=== PATIENT | female | born 1970 | race Caucasian/White ===

== ENCOUNTER 2022-01-15 08:24 | Observation (INO) ==
--- NOTE | 2022-01-13 09:06 | Anesthesiology Consultation ---
Date of Service January 13, 2022 Assessment & Plan (1) Encounter for pre-operative examination: - COVID screening: Per assessment on 01/13: No known COVID-19 positive contacts or current COVID-19 related symptoms. Travel screen negative. Patient vaccinated. Preop Covid test (done 01/12; [facility]) was negative. - S/P colonoscopy (10/08/21): [facility] at [facility]. No issues per post-op anesthesia progress note. - Check BSG, test AM DOS - Preop testing: No recent EKG received. Will check EKG AM DOS. Chart Review Chart Review: Acceptable Risk for Surgery (pending EKG AM DOS) and Patient NOT seen in Pre Admission Testing History Surgery Operation Date: 01/15/22 10:00 Proposed Procedures p Total Laparoscopic Hysterectomy, Cystoscopy, Bilateral Salpingectomy, Possible Laparotomy - Bebeto Nichole MD Height/Weight Height: 5 ft 9 in Weight: 136.078 kg Allergies Allergy/AdvReac Type Severity Reaction Status Date / Time Iodine and Iodide Containing Allergy Intermediate Itching, Verified 01/15/22 08:57 Produc hives latex Allergy Intermediate Itching Verified 01/15/22 08:57 Medications Home Medications Medication Instructions Recorded Confirmed Last Taken Vitamin C 2 tab PO QPM 06/19/19 01/15/22 01/13/22 cyclosporine 0.05 % eye drops in a 1 drp OPHTHALMIC (EYE) Q12H 06/19/19 01/15/22 01/13/22 dropperette (Restasis) metformin 500 mg tablet,extended 500 mg PO QPM 06/19/19 01/15/22 01/13/22 release 24 hr biotin 1 mg tablet 1 mg PO QPM 10/02/21 01/15/22 01/13/22 cholecalciferol (vitamin D3) 25 25 mcg PO QPM 10/02/21 01/15/22 01/13/22 mcg (1,000 unit) chewable tablet (Vitamin D3) cyanocobalamin (vitamin B-12) 1,000 mcg PO QPM 10/02/21 01/15/22 01/13/22 1,000 mcg tablet (Vitamin B-12) ferrous sulfate 325 mg (65 mg 325 mg PO Q OTHER DAY 10/02/21 01/15/22 01/13/22 iron) tablet (Iron (ferrous sulfate)) calcium polycarbophil 625 mg 625 mg PO QPM 01/13/22 01/15/22 01/13/22 tablet (FiberCon) Active Medications Generic Name Dose Route Start Last Admin Trade Name Lucina PRN Reason Stop Dose Admin Lactated Ringer's 1,000 mls @ 15 mls/hr 01/15/22 06:00 01/15/22 09:26 Lr IV 01/16/22 05:59 15 mls/hr .Q24H LALA Administration Lactated Ringer's 1,000 mls @ 125 mls/hr 01/15/22 06:00 01/15/22 09:26 Lr IV 01/15/22 13:59 Not Given .Q8H LALA Past Medical History Medical History Anxiety Diabetes mellitus, type 2 NIDDM History of COVID-19 Dx 01/2021 > resolved Morbid obesity with BMI of 45.0-49.9, adult Sleep apnea CPAP Temporomandibular joint disorder + clicking, hx locking (3+ months ago), + jaw pain Past Family History Family History Brother Family history of diabetes mellitus Mother Family history of diabetes mellitus Other No family history of adverse response to anesthesia Past Surgical History Surgical History History of anesthesia reaction "Slow to wake" > was previously admitted overnight d/t post-op grogginess History of bilateral tubal ligation History of colonoscopy Hx of laparoscopic gastric banding + subsequent removal Social History Smoking Status: Former smoker tobacco type: cigarettes Smoking End Date: 15 YEARS AGO Hx Alcohol Use: Yes Alcohol type: beer, wine and hard liquor alcohol intake frequency: a few times a month substance use type: does not use Physical Exam Vital Signs Last Vital Signs Temp 36.8 C 01/15/22 09:02 Pulse 84 01/15/22 09:02 Resp 20 01/15/22 09:02 BP 147/84 H 01/15/22 09:02 Pulse Ox 96 01/15/22 09:02 Testing Laboratory Results 01/15/22 09:09 01/15/22 09:01 POC Glucose 121 H 01/15/22 09:01 POC Ur Test NEG Electrocardiogram 01/04/22 WBC 12.5 H/H 12.4/37.5 PLATELETS 256 SODIUM 139 POTASSIUM 4.5 CHLORIDE 105 CO2 26 BUN 13 CREATININE 0.78 GLUCOSE 97 Chest X-Ray Date: 07/13/21 Findings: + NAD Stress Test Date: 06/04/16 Type: exercise Stress echo is negative for inducible ischemia. Markedly reduced exercise tolerance. EF 55 to 60%. Grade 2 diastolic dysfunction. Mild AV sclerosis without stenosis. Mild AR. 1 mL 1% MPHR. 6 METS.
[~2022-01-15 08:24] MED LIST: LACTATED RINGER'S 1,000 ML IV SCH; LR 15ML/HR IV SCH
[2022-01-15 09:43] LABS: Basophils # (auto) 0.04 K/uL (0-0.2); Basophils % (auto) 0.4 %; Eosinophils # (auto) 0.16 K/uL (0-0.5); Eosinophils % (auto) 1.7 %; Hematocrit (blood only) 39.8 % (37-47); Hemoglobin 12.7 g/dL (12.0-16.0); Immature Granulocytes # (auto) 0.01 K/uL (0.00-0.02); Immature Granulocytes % (auto) 0.1 %; Lymphocytes % (auto) 18.2 %; Mean Corpuscular Hemoglobin 29.3 pg (25-34); Mean Corpuscular Volume 91.7 fL (80-100); Mean Platelet Volume 11.7 fL (7.4-10.4); Monocytes # (auto) 0.71 K/uL (0.11-0.59); Monocytes % (auto) 7.6 %; Neutrophils # (auto) 6.74 K/uL (1.4-6.5); Platelet Count 225 K/uL (130-400); RDW Standard Deviation 50.5 fL (36.4-46.3); Red Blood Count 4.34 M/uL (4.2-5.4); White Blood Count 9.36 K/uL (4.8-10.8)
[2022-01-15] MEDS ORDERED: MIDAZOLAM HCL 1 MG/ML 2ML VIAL ONE (09:43)
[2022-01-15] MEDS ORDERED: fentaNYL citrate 100 MCG/2 ML VIAL ONE ×5 (09:44→13:18)
--- NOTE | 2022-01-15 09:48 | History & Physical Bridge Note ---
Date of Service January 15, 2022 History & Physical Bridge Note I have examined the patient, reviewed the History & Physical and in the interval since the performance of the History & Physical I have noted the following changes of clinical significance: no changes noted
[2022-01-15 09:51] LABS: Mean Corpuscular Hgb Conc 31.9 g/dL (32-36)
[2022-01-15] MEDS ORDERED: ONDANSETRON INJ 2 MG/ML 2 ML VIAL IV PRN ×2 (09:56→16:06)
[2022-01-15] MEDS ORDERED: PROMETHAZINE HCL 12.5 MG in SODIUM CHLORIDE 0.9% 50 ML IV PRN ×2 (09:56→16:06)
[2022-01-15] MEDS ORDERED: HYDROmorphone INJ 1 MG/ML SYRINGE IV PRN (09:56)
[2022-01-15] MEDS ORDERED: ATROPINE SULFATE 0.1 MG/ML 10ML SYR IV PRN (09:56)
[2022-01-15] MEDS ORDERED: BUPIVACAINE 0.5 % 5 MG/1 ML MPF 30ML VIAL ONE (09:57)
[2022-01-15] MEDS ORDERED: METHYLENE BLUE 0.5% 10 ML VIAL ONE (09:58)
[2022-01-15] MEDS ORDERED: DEXAMETHASONE SOD INJ 4 MG/ML VIAL ONE ×2 (10:36→15:13)
[2022-01-15] MEDS ORDERED: ROCURONIUM BROMIDE 10 MG/ML 5 ML VIAL IV ONE ×6 (10:36→15:13)
[2022-01-15] MEDS ORDERED: METOCLOPRAMIDE HCL INJ 5 MG/ML 2 ML VIAL ONE (10:36)
[2022-01-15] MEDS ORDERED: LIDOCAINE 2% 2 ML VIAL/AMP(20MG/ML) INFIL ONE ×2 (10:36→15:13)
[2022-01-15] MEDS ORDERED: PROPOFOL IV EMULSION 10 MG/ML 20 ML VIAL IV ONE (10:36)
[2022-01-15] MEDS ORDERED: FLOSEAL HEMOSTATIC MATRIX 10ML TOP ONE (14:05)
[2022-01-15] MEDS ORDERED: HYDROmorphone INJ 2 MG/ML SYR/VIAL ONE (14:45)
[2022-01-15] MEDS ORDERED: NEOSTIGMINE METHYLSULFATE 1 MG/ML 10ML VIAL ONE (15:13)
[2022-01-15] MEDS ORDERED: GLYCOPYRROLATE 0.2 MG/ML VIAL ONE (15:13)
[2022-01-15] MEDS ORDERED: bisacodyL 10 MG SUPP PR PRN (16:06)
[2022-01-15] MEDS ORDERED: oxyCODONE/ACETAMINOPHEN 5mg/325mg TAB PO PRN (16:06)
[2022-01-15] MEDS ORDERED: ACETAMINOPHEN 325 MG TAB PO PRN (16:06)
[2022-01-15] MEDS ORDERED: MAGNESIUM HYDROXIDE SUSP 30 ML UDC PO PRN (16:06)
[2022-01-15] MEDS ORDERED: SIMETHICONE 80 MG CHEW PO PRN (16:06)
--- NOTE | 2022-01-15 16:06 | Post Operative Brief Note ---
Immediate Post Op Note v1 Date of Surgery January 15, 2022 Pre & Post Diagnosis Operation Date: 01/15/22 10:00 Pre-Op Diagnosis: Fibroid Uterus, Menorrhagia Post-Op Diagnosis: Fibroid Uterus, Menorrhagia I identified the patient and participated in the time-out.: Yes Procedure Operation Date: 01/15/22 10:00 Actual Procedures p Total Laparoscopic Hysterectomy, Bilateral Salpingectomy(Not Applicable) - Bebeto Nichole MD s Cystoscopy(Not Applicable) - Bebeto Nichole MD Surgeon Bebeto Nichole MD Milker Machine alex rai Estimated Blood Loss 10 Findings Consistent with Post-Op Diagnosis Drains Sal Catheter
--- NOTE | 2022-01-15 17:18 | Anesthesiology Progress Note ---
Date of Service January 15, 2022 Anesthesia Post Procedure Vital Signs Vital Signs: Temp Pulse Pulse Resp BP Pulse Ox 01/15/22 17:00 80 13 108/71 95 01/15/22 16:45 68 18 112/64 94 01/15/22 16:30 65 14 109/69 94 01/15/22 16:15 36.4 C L 72 16 132/76 95 01/15/22 16:05 69 13 110/72 97 01/15/22 15:55 69 14 127/64 99 01/15/22 15:45 71 18 125/71 97 01/15/22 15:38 36.9 C 78 14 133/74 98 01/15/22 09:02 36.8 C 84 20 147/84 H 96 Transfer of Care Handoff Completed per policy Notes Mental Status: alert / awake / arousable and participated in evaluation Patient Amnestic to Procedure: Yes Nausea / Vomiting: adequately controlled Pain: adequately controlled Airway Patency, RR, SpO2: stable & adequate BP & HR: stable & adequate Hydration State: stable & adequate Anesthetic Complications: no major complications apparent and Pt Satisfied with anesthetic care
--- NOTE | 2022-01-15 17:40 | Operative Report (OR) ---
DATE OF PROCEDURE: 01/15/2022 INDICATION FOR SURGERY: This is a 51-year-old with menorrhagia and 16 week size fibroid uterus. POSTOPERATIVE DIAGNOSES: Menorrhagia and 16 week size fibroid uterus. SURGEON: Bebeto Nichole MD. TAX LAWYER: Marjorie Irene PA-C. PROCEDURES: 1. Total laparoscopic hysterectomy with bilateral salpingectomy. 2. Cystoscopy.. ATTESTATION FOR TAX LAWYER: Tobacco Roller was necessary to help with retraction and manipulation to help facilitate safe procedure. DRAINS: None. ESTIMATED BLOOD LOSS: 10 mL. INTRAVENOUS FLUIDS: 1500 mL. URINE OUTPUT: 400 mL of clear urine at the end of the procedure. SPECIMEN: Uterus with cervix, left and right fallopian tubes. INTRAOPERATIVE COMPLICATIONS: None. PATIENT CONDITION: Stable. DISPOSITION: Postoperative anesthesia care unit. ATTESTATION: I performed the entire procedure. FINDINGS: Normal female escutcheon, vagina and vulva appropriate for 51-year-old, some mild atrophy. Laparoscopic findings; however, showed a large uterus about 16 week size. Left and right ovary and fallopian tube were identified. There were adhesions of the left colon attached to the left lower p glen. DESCRIPTION OF PROCEDURE: The patient was taken to the operating room where she was prepped and drap ed in a normal sterile fashion in dorsal lithotomy position. Timeout was called. Vagina was examine d and dictation is as dictated above. A Sal catheter was placed into the bladder without difficult y. The medium size VCare uterine manipulator was placed into the uterus and attached with a sutur es to help manipulate the uterus during laparoscopy. The uterus sounded to 6-16 cm. Attention was p aid to the abdominal part of the procedure where a supraumbilical incision was made with a scalpel an d carried down to the fascia. Veress needle was introduced into the abdomen at a 45-degree angle whi le tenting up the abdomen. Irrigation and suction as well as drop test was performed to confirm intra abdominal placement of the Veress needle. Abdomen was insufflated with 4 liters of CO2 gas. Veress needle was removed and a nonbladed trocar was introduced into the abdomen under direct visualization. Once inside the abdomen, laparoscope was repositioned. Findings of the abdomen was as dictated above . Three more accessory ports were placed. The first port, which was placed in supraumbilical was a 5 mm trocar, another 5 mm trocar was placed on the right lower pelvis, two 12 mm trocars were placed on the left side of the abdomen and pelvis. These were all done under direct visualizations. These were also done to help manipulate the uterus. General appearance of the pelvis including the presenc e of abdominal adhesions was performed As stated above, there were adhesions of the left bowel to the lower pelvis wall. This was carefully dissected using scissors to help the bowel move out of the pe lvis in order to facilitate easy dissection of the left adnexa. Uterus, left and right fallopian tub es, the bladder and ureters as well as the uterosacrals, bowels and cecum were identified. LigaSure was passed through the left accessory port. The left fallopian tube was identified and grabbed 4 cm from the cornua of the uterus with the ligature and transected. This was followed by dissection of t he left anterior leaf of the broad ligament. Mid section of the left fallopian tube, uterine, ovaria n and medial ovarian pedicles were transected as well. The same procedure was performed on the contralateral side. Anterior broad ligament dissection was c arried to the mid-section of the vesicouterine peritoneum over the bladder using the Harmonic scalpel . The same procedure was carried out from the contralateral side. The posterior broad ligament hadley toneum was carefully dissected also from both sides over the uterosacral arch in order to displace th e ureters laterally. Using traction and countertraction, the [place] retractor and irrigation probe was used to further dissect the bladder off the lower segment of the uterus. Bladder pillars and pu bovesical fascia was dissected as well. Harmonic scalpel was used to obtain hemostasis when needed. Uterine manipulator and a myoma screw was used to manipulate the uterus when needed. Uterine manipu lator of the above dissection became palpable over the vaginal tissue. The right uterine pedicles we re skeletonized and coagulated with a LigaSure. Good hemostasis was obtained. The same procedure wa s performed on the contralateral side. The cardinal ligaments were transected on both sides. Once g ood hemostasis was obtained, colpotomy was performed using the LigaSure hook from both sides. Attention was turned to the removal of the uterus from the vagina because of the size of the large fi broid and uterus. The uterus had to be morcellated several times through the vagina. This was done with in the vagina in order to help protect the vaginal mucosa. After several morcellations th rough the vagina, the uterus was finally removed in its entirety. Inspection of the vagina showed a small periurethral laceration, which was repaired with 2-0 Vicryl. Sal catheter was inside the carmen dder through the ureteral orifices and the integrity of the urethra and the bladder was . Spong e inside a glove was placed inside the vagina. This was to help maintain pneumoperitoneum. With a grasper, the remaining section of the left and right fallopian tubes were positioned anteromed ially and transected. This was done using the LigaSure. There was good hemostasis. These tubes wer e sent to pathologist for pathological analysis. EndoStitch closure device was passed through the 10 mm port on the left using the [place] grasper fo r traction, the colpotomy closure was performed. Uterosacral ligaments were incorporated into the cl osure in order to decrease the risks of prolapse. Lapra-Tys were used with the EndoStitch. Attention was paid to the cystoscopy part of the procedure where a cystoscope was passed through the ureteral orifices and the bladder was examined. There were no lesions or masses or blood seen in the bladder cavity. Bubble sign was present confirming closing cavity of the bladder. The dome of the bladder was identified. Both left and right ureteral orifices was seen. The patient had been given methylene blue earlier in the case and blue urine was seen injecting out of both orifices. The scope was removed from the bladder. Further examination of the vagina showed vaginal cuff closure was int act. There was good hemostasis in the vagina. Attention was paid back to the abdominal part of the procedure where the laparoscope and trocars were removed after FloSeal was placed along the vaginal cuff site. This was to obtain further hemostasis . The 5 mm incision sites were closed with Dermabond. Janes-Manjit was passed through the 10 mm ports and the fascia closed with 0 Vicryl under direct visualization. The skin edges were approximat ed using 4-0 Monocryl sutures. All instruments were removed from the abdomen and the vagina and the bladder and accounted for x2 inc luding sponges, needles, and retractors. The patient is doing well in recovery period. Job ID: [id number]
--- NOTE | 2022-01-15 18:11 | Electrocardiogram Report ---
Test Reason : Blood Pressure : / mmHG Vent. Rate : 082 BPM Atrial Rate : 082 BPM P-R Int : 164 ms QRS Dur : 086 ms QT Int : 356 ms P-R-T Axes : 035 044 034 degrees QTc Int : 415 ms Normal sinus rhythm Normal ECG No previous ECGs available Confirmed by Raymon Clay ([id number]) on 01/15/2022 6:11:27 PM Referred By: Bebeto Nichole Confirmed By:Kvng Clay
[2022-01-15] MEDS: LACTATED RINGER'S 1,000 ML IV SCH (18:43)
[2022-01-15] MEDS: oxyCODONE/ACETAMINOPHEN 5mg/325mg TAB PO PRN (20:23)
[2022-01-15] MEDS: DOCUSATE SODIUM 100 MG CAP PO SCH (20:23)
[2022-01-16] MEDS: oxyCODONE/ACETAMINOPHEN 5mg/325mg TAB PO PRN ×3 (00:51→08:29)
[2022-01-16] MEDS: LACTATED RINGER'S 1,000 ML IV SCH (02:26)
[2022-01-16 07:01] LABS: Basophils # (auto) 0.02 K/uL (0-0.2); Basophils % (auto) 0.1 %; Eosinophils # (auto) 0.01 K/uL (0-0.5); Eosinophils % (auto) 0.1 %; Hematocrit (blood only) 30.7 % (37-47); Immature Granulocytes # (auto) 0.05 K/uL (0.00-0.02); Immature Granulocytes % (auto) 0.3 %; Lymphocytes # (auto) 2.03 K/uL (1.2-3.4); Mean Corpuscular Hemoglobin 29.9 pg (25-34); Mean Corpuscular Hgb Conc 32.6 g/dL (32-36); Mean Corpuscular Volume 91.6 fL (80-100); Monocytes # (auto) 1.81 K/uL (0.11-0.59); Monocytes % (auto) 9.8 %; Neutrophils # (auto) 14.52 K/uL (1.4-6.5); Neutrophils % (auto) 78.7 %; Platelet Count 201 K/uL (130-400); RDW Coefficient of Variation 15.1 % (11.5-14.5); RDW Standard Deviation 50.8 fL (36.4-46.3); Red Blood Count 3.35 M/uL (4.2-5.4); White Blood Count 18.44 K/uL (4.8-10.8)
[2022-01-16 07:50] LABS: BUN Creatinine Ratio 12.6 (10-20); Calcium 8.5 mg/dl (8.5-10.1); Creatinine Clr Calc Pharmacy 116.6 ml/min; Est GFR (Non-African American) 77.7 ml/min; Potassium 3.8 mmol/L (3.5-5.1)
[2022-01-16] MEDS: DOCUSATE SODIUM 100 MG CAP PO SCH (08:28)
--- NOTE | 2022-01-16 09:52 | Obstetrical Progress Note ---
Date of Service January 16, 2022 Assessment & Plan (1) S/P laparoscopic hysterectomy: POD #1 pt doing well wishes to be discharged home Subjective Review of Systems All systems reviewed & are unremarkable except as noted in HPI & below Physical Exam Constitutional WD/WN, vitals as above Eyes PERRL, conjunctivae normal, anicteric sclerae ENMT external ear and nose normal, oropharynx normal Neck trachea midline, no thyromegaly Respiratory normal respiratory effort, lungs clear to auscultation Cardiovascular RRR, no murmur, no edema Chest (Breasts) normal inspection/palpation of breasts Gastrointestinal (Abdomen) normal bowel sounds, soft, nontender, no hepatosplenomegaly Musculoskeletal no cyanosis or clubbing, extremities motor strength 5/5 Skin + incision (Incision clean,dry and intact) Neurologic patellar DTR's 2+ bilat, sensation intact Psychiatric A+Ox3, euthymic affect Genitourinary no vaginal lesions, no adnexal mass Lymphatic no cervical or axillary lymphadenopathy Results & Data ([facility]) Vital Signs (Past 12 Hours) Vital Signs Temp Pulse Pulse Resp BP Pulse Ox 01/16/22 09:14 37 C 92 H 18 126/72 96 01/16/22 07:25 37 C 92 H 18 126/72 96 01/16/22 04:47 36.9 C 94 H 18 121/78 01/16/22 01:50 89 26 H 94 01/15/22 23:10 36.4 C L 88 17 118/77 95
--- NOTE | 2022-01-16 09:56 | Obstetrical Progress Note ---
Date of Service January 16, 2022 Assessment & Plan (1) S/P laparoscopic hysterectomy: POD #1 TLH for Menorrhagia and fibroid uterus pt doing well d/c home with instructions. Subjective Review of Systems All systems reviewed & are unremarkable except as noted in HPI & below Physical Exam Constitutional WD/WN, vitals as above Eyes PERRL, conjunctivae normal, anicteric sclerae ENMT external ear and nose normal, oropharynx normal Neck trachea midline, no thyromegaly Respiratory normal respiratory effort, lungs clear to auscultation Cardiovascular RRR, no murmur, no edema Chest (Breasts) normal inspection/palpation of breasts Gastrointestinal (Abdomen) normal bowel sounds, soft, nontender, no hepatosplenomegaly Musculoskeletal no cyanosis or clubbing, extremities motor strength 5/5 Skin + incision (Incision clean,dry and intact) Neurologic patellar DTR's 2+ bilat, sensation intact Psychiatric A+Ox3, euthymic affect Genitourinary no vaginal lesions, no adnexal mass Lymphatic no cervical or axillary lymphadenopathy Results & Data ([facility]) Vital Signs (Past 12 Hours) Vital Signs Temp Pulse Pulse Resp BP Pulse Ox 01/16/22 09:14 37 C 92 H 18 126/72 96 01/16/22 07:25 37 C 92 H 18 126/72 96 01/16/22 04:47 36.9 C 94 H 18 121/78 01/16/22 01:50 89 26 H 94 01/15/22 23:10 36.4 C L 88 17 118/77 95
[2022-01-16] MEDS ORDERED: AMOXICILLIN/CLAVULANATE 875 MG TAB PO SCH (10:00)
--- NOTE | 2022-01-17 09:04 | Discharge Summary (DS) ---
DATE OF ADMISSION: 01/15/2022 DISCHARGE SUMMARY: 01/16/2022. CHIEF COMPLAINT: Menorrhagia, fibroid uterus. HISTORY OF PRESENT ILLNESS: This is a 51-year-old G2, P2, status post elevated BMI, menorrhagia and fibroid uterus. The patient underwent total laparoscopic hysterectomy with bilateral salpingectomy a nd cystoscopy on 01/15/2022. She stayed overnight for observation and is being discharged home today on 01/16/2022. Details of surgery is in the surgical note. PAST MEDICAL HISTORY: History of anxiety, diabetes type 2 on metformin, elevated BMI of 47, sleep ap francine and temporomandibular joint disease. PAST SURGICAL HISTORY: History of bilateral tubal ligation, colonoscopy and laparoscopic gastric ban ding. SOCIAL HISTORY: The patient denies tobacco, drug or alcohol use. The patient is and lives w ith spouse. FAMILY HISTORY: Noncontributory. ALLERGIES: THE PATIENT IS ALLERGIC TO IODINE. PHYSICAL EXAMINATION: GENERAL: A well-developed, well-nourished white female in no acute distress. VITAL SIGNS: On 01/16/2022 showed blood pressure of 126/72, pulse of 92, respiration of 18, temperat ure of 37 degrees. LUNGS: Clear to auscultation bilaterally. ABDOMEN: Nontender, nondistended. Incision sites are clean, dry, and intact. Positive bowel sounds . PELVIC EXAM: Very minimal discharge and bleeding. LABORATORY: This morning show hemoglobin of 10.0, hematocrit of 30.0, platelets of 201. CONDITION ON DISCHARGE: Stable. OPERATIONS: Total laparoscopic hysterectomy with bilateral salpingectomy and cystoscopy. DISCHARGE DIAGNOSES: Postoperative after total laparoscopic hysterectomy, bilateral salpingectomy, a nd cystoscopy. PLAN ON DISCHARGE: The patient is discharged home with instructions regarding activity, diet, follow up appointment and medications. Job ID: [id number]
== END 2022-01-16 11:40 | disposition home or self-care (01) ==
LOC: ASU 08:24 → 4E2 08:24